=== PATIENT | male | born 1955 | race Hispanic/Latino ===

== ENCOUNTER 2016-07-30 11:16 | Emergency (ER) | payer MEDICARE, OTHER ==
[2016-07-30 11:19] VITALS: BMI 36.8
[2016-07-30 11:25] VITALS: RESP 18
--- NOTE | 2016-07-30 11:49 | ED PDOC ---
Arrival/HPI - General Chief Complaint: Back Pain Time Seen by Provider: 07/30/16 11:29 Historian: Patient - History of Present Illness Narrative History of Present Illness (Text): 07/30/16 11:45 Patient is a 61 year old male whose past medical history includes gastritis and right hemicolectomy, who presents to the emergency department with left sided back pain, intermittent body aches, and chills/sweats for the past 3 days. Patient states 2 days ago he had some "blood in his underwear" and was evaluated by his urologist. He denies associated dysuria, testicular pain or back pain at the time. Currently patient denies chest pain or shortness of breath. 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) - HEENT Hx HEENT Disorder: Yes Hx Deafness: Yes - Renal Hx Pyelonephritis: Yes - Endocrine/Metabolic Hx Endocrine Disorders: No - Hematological/Oncological Hx Blood Transfusions: No - Integumentary Hx Dermatological Disorder: No - Musculoskeletal/Rheumatological Hx Musculoskeletal Disorders: Yes - Gastrointestinal Hx Gastrointestinal Disorders: Yes Other/Comment: rectal bleed - Genitourinary/Gynecological Hx Genitourinary Disorders: (ERECTILE DYSFUNCTION,PRIAPISM) - Psychiatric Hx Emotional Abuse: No Hx Physical Abuse: No Hx Substance Use: No ("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") - Past Surgical History Past Surgical History: Non-Contributing - Surgical History Other/Comment: right colon 2011/tanesha cochlear implants - Anesthesia Hx Anesthesia Reactions: No Hx Malignant Hyperthermia: No - Suicidal Assessment Feels Threatened In Home Enviroment: No Family/Social History - Physician Review Nursing Documentation Reviewed: Yes Family/Social History: Unknown Family HX Smoking Status: vapping Hx Alcohol Use: No ("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") Hx Substance Use: No ("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") Substance used: cocaine Hx Substance Use Treatment: No Allergies/Home Meds Allergies/Adverse Reactions: Allergies warfarin Allergy (Verified 08/28/15 08:46) RASH Home Medications: Home Meds Medication Instructions Recorded Confirmed ARIPiprazole [Abilify] 15 mg PO HS 06/01/15 07/30/16 Aspirin [Warden Aspirin] 81 mg PO DAILY 06/01/15 07/30/16 Clopidogrel [Plavix] 75 mg PO DAILY 06/01/15 07/30/16 Gabapentin [Neurontin] 300 mg PO BID 06/01/15 07/30/16 Sertraline [Zoloft] 100 mg PO DAILY 06/01/15 07/30/16 Trazodone HCl [Trazodone HCl] 300 mg PO HS 06/01/15 07/30/16 traMADol [Ultram] 50 mg PO Q4H PRN 06/01/15 07/30/16 Review of Systems - Physician Review All systems were reviewed & negative as marked: Yes - Review of Systems Constitutional: Other (Chills, Sweats) Respiratory: absent: SOB Cardiovascular: absent: Chest Pain Genitourinary Male: Other (No testicular pain). absent: Dysuria Musculoskeletal: Arthralgias, Back Pain Physical Exam - Physical Exam Narrative Physical Exam (Text): Head: Atraumatic. Normocephalic. Eyes: PERRL. EOMI. Conjunctivae are not pale. ENT: Mucous membranes are moist and intact. Oropharynx is clear and symmetric. Neck: Supple. Full ROM. No JVD. No lymphadenopathy. Cardiovascular: Regular rate. Regular rhythm. No murmurs, rubs, or gallops. Distal pulses are 2+ and symmetric. Pulmonary/Chest: No evidence of respiratory distress. Clear to auscultation bilaterally. No wheezing, rales or rhonchi. Abdominal: Soft and non-distended. Diffuse but very mild lower abdominal tenderness. No rebound, guarding, or rigidity. No organomegaly. Good bowel sounds. No incarcerated hernias. Back: No CVA tenderness. No midline tenderness. Point tenderness to left lateral lower lumbar region without erythema or edema. Genitourinary: no testicular edema or erythema, no penile bleeding Extremities: No edema. No cyanosis. No clubbing. Full range of motion in all extremities. No calf tenderness. Skin: Skin is warm and dry. No petechiae. No purpura. Neurological: Alert, awake, and oriented to person, place, time, and situation. Normal speech. Motor and sensory exam intact. Psychiatric: Good eye contact. Normal interaction, affect, and behavior. 07/31/16 12:04 Vital Signs Reviewed: Yes Vital Signs Temp Pulse Resp BP Pulse Ox 07/30/16 13:35 98.7 F 75 18 126/73 97 07/30/16 11:16 99 F 80 18 120/75 95 Temperature: Afebrile Blood Pressure: Normal Pulse: Regular Respiratory Rate: Normal Appearance: Positive for: Well-Appearing, Non-Toxic, Comfortable Pain Distress: Mild Mental Status: Positive for: Alert and Oriented X 3 Medical Decision Making ED Course and Treatment: Differential Diagnosis included but are not limited to: Renal colic vs pyelonephritis vs colitis vs lumbar strain vs. uti Plan: Will obtain CT of the Abdomen/Pelvis, labs, urinalysis, and administer IV fluids. Progress Notes: Patient's prior records reviewed. Recently evaluated by urologist to 2 days ago , states he did not have pain at that time. Patient reportedly has had work up for c. diff with PMD, as he has had chronic diarrhea. He denies change in character or consistency of stools over the past several weeks, still reports "loose stools". Patient also with history of chronic abdominal pain by his history. Patient with only mild lower abdominal discomfort, no rebound or guarding. CT ordered to evaluate for renal or intestinal pathology. CT Abdomen/Pelvis Aerial Installer: Niko Ausitn MD IMPRESSION: No acute intra-abdominal findings. Patient on re-exam is comfortable, nontoxic appearing. UA reviewed, and I discussed case with Dr. Sims. Given lower abdominal discomfort, cannot exclude colitis, after communication with PMD will place on antibiotics/Flagyl. This treatment plan reviewed with patient and PMD, will place on Augmentin as there is drug interaction with quinolones on his current meds. Patient comfortable, nontoxic appearing on re-evaluation. 07/31/16 12:06 - Lab Interpretations Lab Results: 07/30/16 12:01 07/30/16 12:01 Lab Results 07/30/16 13:05: Urine Color Yellow, Urine Appearance Sl cloudy, Urine pH 6.0, Ur Specific Bruni 1.015, Urine Protein Negative, Urine Glucose (UA) Negative, Urine Ketones Negative, Urine Blood Trace-intact H, Urine Nitrate Negative, Urine Bilirubin Negative, Urine Urobilinogen 0.2, Ur Leukocyte Esterase Small H , Urine RBC 0 - 2, Urine WBC 5 - 10 07/30/16 12:01: Sodium 136, Chloride 101, Potassium 4.0, Carbon Dioxide 26, Anion Gap 13, BUN 13, Creatinine 0.9, Est GFR ( Amer) > 60, Est GFR (Non- Af Amer) > 60, Random Glucose 97, Calcium 9.5, Total Bilirubin 1.0, AST 21, ALT 34, Alkaline Phosphatase 60, Lactate Dehydrogenase 280 L, Total Creatine Kinase 80, Troponin I < 0.01 D, Total Protein 7.0, Albumin 4.0, Globulin 3.0, Albumin/ Globulin Ratio 1.3 07/30/16 12:01: pO2 116 H, VBG pH 7.43, VBG pCO2 42.0, VBG HCO3 27.9, VBG Total CO2 29.2 H, VBG O2 Sat (Calc) 99.4 H, VBG Base Excess 3.2 H, VBG Potassium 4.1, Sodium 135.0, Chloride 104.0, Glucose 98, Lactate 0.6 L, FiO2 21.0, Venous Blood Potassium 4.1 07/30/16 12:01: PT 10.7, INR 0.99, APTT 28.4 07/30/16 12:01: WBC 11.6 H D, RBC 4.16, Hgb 12.8 L, Hct 36.9 L, MCV 88.7, MCH 30.8, MCHC 34.7, RDW 13.6, Plt Count 194, MPV 9.9, Gran % 80.3 H, Lymph % (Auto ) 11.9 L, Mcculloch % (Auto) 6.9 H, Eos % (Auto) 0.8 L, Baso % (Auto) 0.1, Gran # 9.33 H, Lymph # 1.4, Mcculloch # 0.8 H, Eos # 0.1, Baso # 0.01 - RAD Interpretation Radiology Orders: 07/30/16 11:46 ABD & PELVIS W/O PO OR IV CONT [CT] Stat CHEST ONE VIEW [RAD] Stat - Medication Orders Current Medication Orders: Discontinued Medications Sodium Chloride (Sodium Chloride 0.9%) 1,000 mls @ 100 mls/hr IV .Q10H NUZHAT Last Admin: 07/30/16 11:59 Dose: 100 mls/hr - Michaelibe Statement The provider has reviewed the documentation as recorded by the Camryn Pierson Provider Michaelibjae Attestation: All medical record entries made by the Michaelibe were at my direction and personally dictated by me. I have reviewed the chart and agree that the record accurately reflects my personal performance of the history, physical exam, medical decision making, and the department course for this patient. I have also personally directed, reviewed, and agree with the discharge instructions and disposition. Disposition/Present on Arrival - Present on Arrival Any Indicators Present on Arrival: No History of DVT/PE: No History of Uncontrolled Diabetes: No Urinary Catheter: No History of Decub. Ulcer: No History Surgical Site Infection Following: None - Disposition Have Diagnosis and Disposition been Completed?: Yes Diagnosis: Flank pain, UTI (urinary tract infection), Abdominal pain Disposition: HOME/ ROUTINE Disposition Time: 13:30 Patient Plan: Discharge Condition: GOOD Discharge Instructions (ExitCare): Urinary Tract Infection in Men (ED), Flank Pain (ED) Additional Instructions: For any fevers, any abdominal pain, any urinary symptoms, any vomiting or diarrhea, any sweats, any lightheadedness or dizziness, any difficulty moving bowels, any persistent or worsening of any symptoms, get rechecked. Take antibiotics as directed. If back pain returns or worsening get rechecked immediately. Follow-up with Dr. Huerta in 2-3 days. Please contact your doctor or call one of the physicians/clinics you have been referred to that are listed on the Patient Visit Information form that is included in your discharge packet. Bring any paperwork you were given at discharge with you along with any medications you are taking to your follow up visit. Our treatment cannot replace ongoing medical care by a primary care provider (PCP) outside of the emergency department. Thank you for allowing the [facility] team to be part of your care today. If you had an X-Ray or CT scan: A Radiologist will review the ED reading if any change in treatment is needed we will contact you. If you had a blood, urine, or wound culture: It will take several days for the results, if any change in treatment is needed we will contact you. Prescriptions: Amoxicillin/Clavulanate [Augmentin 875 MG-125 MG] 1 tab PO BID #14 tab metroNIDAZOLE [Flagyl] 500 mg PO TID #21 tab Referrals: Leo Sims MD [Primary Care Provider] - Follow up with primary
[2016-07-30] MEDS ORDERED: Sodium Chloride 0.9% 1,000 ML IV SCH (12:00)
[2016-07-30 12:02] LABS: ADD MANUAL DIFF? NO
[2016-07-30 12:06] LABS: VENOUS BLOOD GAS BASE EXCESS 3.2 mmol/L (0.0-2.0); VENOUS BLOOD PH 7.43 (7.32-7.43)
[2016-07-30 12:10] LABS: BASO # 0.01 K/mm3 (0.0-2.0); BASO % 0.1 % (0.0-3.0); EOS # 0.1 (0.0-0.7); EOS % 0.8 % (1.5-5.0); GRAN # 9.33 (1.4-6.5); GRAN % 80.3 % (50.0-68.0); HEMATOCRIT 36.9 % (42.0-52.0); LYMPH # 1.4 (1.2-3.4); LYMPH % 11.9 % (22.0-35.0); MEAN CELL VOLUME 88.7 fL (80.0-105.0); MEAN CORPUSCULAR HEMOGLOBIN 30.8 pg (25.0-35.0); MEAN CORPUSCULAR HGB CONC 34.7 g/dl (31.0-37.0); MEAN PLATELET VOLUME 9.9 fl (7.0-11.0); MONO # 0.8 (0.1-0.6); MONO % 6.9 % (1.0-6.0); PLATELET COUNT 194 10^3/uL (120.0-450.0); RED CELL DISTRIBUTION WIDTH 13.6 % (11.5-14.5); WHITE BLOOD COUNT 11.6 10^3/ul (4.5-11.0)
[2016-07-30 12:14] LABS: ALB/GLOB RATIO 1.3 (1.1-1.8); ALKALINE PHOSPHATASE 60 U/L (38-133); ALT/SGPT 34 U/L (7-56); AST/SGOT 21 U/L (15-59); BLOOD UREA NITROGEN 13 mg/dL (7-21); CALCIUM 9.5 mg/dL (8.4-10.5); CARBON DIOXIDE 26 mmol/L (21-33); CHLORIDE 101 mmol/L (98-107); GFR AFRICAN-AMERICAN > 60; GLUCOSE,RANDOM 97 mg/dL (70-110); SODIUM 136 mmol/L (132-148)
[2016-07-30 12:16] LABS: INR 0.99 (0.93-1.08); PARTIAL THROMBOPLASTIN TIME 28.4 Seconds (23.7-30.8)
[2016-07-30 12:26] LABS: TROPONIN I < 0.01 ng/mL
--- NOTE | 2016-07-30 12:27 | CT ---
PROCEDURE: CT Abdomen and Pelvis without intravenous contrast HISTORY: left flank pain COMPARISON: None. TECHNIQUE: Without oral or IV contrast. Contrast Dose: Radiation dose: Total exam DLP = 1127 mGy-cm. This CT exam was performed using one or more of the following dose reduction techniques: Automated exposure control, adjustment of the mA and/or kV according to patient size, and/or use of iterative reconstruction technique. FINDINGS: LOWER THORAX: Unremarkable. LIVER: Unremarkable. No gross lesion or ductal dilatation. GALLBLADDER AND BILE DUCTS: The gallbladder is contracted and contains a small stone. PANCREAS: Unremarkable. No gross lesion or ductal dilatation. SPLEEN: Unremarkable. ADRENALS: Unremarkable. No mass. KIDNEYS AND URETERS: Unremarkable. No hydronephrosis. No solid mass. VASCULATURE: Unremarkable. No aortic aneurysm. BOWEL: Unremarkable. No obstruction. No gross mural thickening. Sutures are seen in the ascending colon. APPENDIX: Probably resected PERITONEUM: Unremarkable. No free fluid. No free air. LYMPH NODES: Unremarkable. No enlarged lymph nodes. BLADDER: Unremarkable. REPRODUCTIVE: Unremarkable. BONES: No acute fracture. OTHER FINDINGS: None. IMPRESSION: No acute intra-abdominal findings
--- NOTE | 2016-07-30 13:02 | RAD ---
PROCEDURE: CHEST RADIOGRAPH, 1 VIEW HISTORY: chills COMPARISON: 06/01/2015 FINDINGS: LUNGS: Clear. PLEURA: No pneumothorax or pleural fluid seen. CARDIOVASCULAR: Normal. OSSEOUS STRUCTURES: No significant abnormalities. VISUALIZED UPPER ABDOMEN: Normal. OTHER FINDINGS: None. IMPRESSION: No active disease.
[2016-07-30 13:12] LABS: URINE BILIRUBIN NEGATIVE (NEGATIVE); URINE BLOOD TRACE-INTACT (NEGATIVE); URINE GLUCOSE (UA) NEGATIVE (NEGATIVE); URINE KETONE NEGATIVE (NEGATIVE); URINE LEUKOCYTE ESTERASE SMALL Leu/uL (NEGATIVE); URINE PROTEIN NEGATIVE mg/dL (<30 mg/dL); URINE UROBILINOGEN 0.2 E.U./dL (<1 E.U./dL)
[2016-07-30 13:16] LABS: URINE APPEARANCE SL CLOUDY (CLEAR); URINE COLOR YELLOW (YELLOW)
[2016-07-30 13:31] LABS: URINE RBC 0 - 2 /hpf (0-2)
[2016-07-30 14:09] VITALS: BP 126/73; PULSE 75; TEMP 98.7; O2SAT 97
--- NOTE | 2016-07-31 16:08 | CARD ---
APPROVED REPORT EKG Measurement Heart [id number] IN [id number] [id number] <Conclusion> Normal sinus rhythm Normal ECG
== END 2016-07-30 14:10 | disposition home or self-care (01) ==
LOC: ED 11:16
DX: N39.0 Urinary tract infection, site not specified (principal); R10.9 Unspecified abdominal pain
CPT/HCPCS: 71010; 74176; 80053; 81001; 82550; 82803; 83615; 84484; 85025; 85610; 85730; 87086; 93005; 99283; J7040

== ENCOUNTER 2016-08-16 07:44 | Day surgery (SDC) | payer MEDICARE, OTHER ==
[2016-08-16 08:09] VITALS: RESP 18; O2SAT 96
[2016-08-16] MEDS ORDERED: Bupivacaine 0.5% Inj(30mL) ONE (09:24)
[2016-08-16] MEDS ORDERED: Lidocaine 1% Inj (20ml) ONE (09:24)
[2016-08-16 10:21] VITALS: BP 127/72; PULSE 75; TEMP 97.6
--- NOTE | 2016-08-16 10:21 | PCM.SURG1 ---
Surgeon's Initial Post Op Note - Surgeon's Notes Surgeon: Dr. Calderon Solar Power Installer: Dr. Britt PGY2, Dr. Carreno PGY3 Type of Anesthesia: Local Pre-Operative Diagnosis: Sebaceous cyst of abdominal wall Operative Findings: same Post-Operative Diagnosis: same Operation Performed: Excision of Sebaceous Cyst, abdominal wall Specimen/Specimens Removed: sebaceous cyst Estimated Blood Loss: EBL {In ML}: 5 Blood Products Given: N/A Drains Used: No Drains Post-Op Condition: Good Date of Surgery/Procedure: 08/16/16 Time of Surgery/Procedure: 10:20
== END 2016-08-16 10:45 | disposition home or self-care (01) ==
LOC: OPSURG 07:44
PROVIDERS: ATTEND Surgery
DX: D23.5 Other benign neoplasm of skin of trunk (principal); L72.3 Sebaceous cyst

== ENCOUNTER 2016-09-06 06:07 | Day surgery (SDC) | payer MEDICARE, OTHER ==
[2016-09-06 07:01] VITALS: BMI 36.8
[2016-09-06 07:39] LABS: INR 1.04 (0.93-1.08); PROTHROMBIN TIME 11.2 Seconds (9.9-11.8)
[2016-09-06 07:41] LABS: BASO # 0.01 K/mm3 (0.0-2.0); BASO % 0.1 % (0.0-3.0); EOS # 0.2 (0.0-0.7); GRAN # 5.31 (1.4-6.5); GRAN % 70.4 % (50.0-68.0); HEMOGLOBIN 13.9 gm/dL (14.0-18.0); LYMPH # 1.5 (1.2-3.4); LYMPH % 20.2 % (22.0-35.0); MEAN CORPUSCULAR HEMOGLOBIN 30.5 pg (25.0-35.0); MEAN CORPUSCULAR HGB CONC 35.1 g/dl (31.0-37.0); MEAN PLATELET VOLUME 9.3 fl (7.0-11.0); MONO # 0.6 (0.1-0.6); MONO % 7.3 % (1.0-6.0); PLATELET COUNT 186 10^3/uL (120.0-450.0); RBC 4.55 10^6/uL (3.5-6.1); RED CELL DISTRIBUTION WIDTH 13.3 % (11.5-14.5); WHITE BLOOD COUNT 7.5 10^3/ul (4.5-11.0)
[2016-09-06] MEDS ORDERED: Propofol 10 mg/ml Inj (20 ML) ONE ×2 (08:04→08:31)
[2016-09-06] MEDS ORDERED: Lidocaine 1% Inj (20ml) ONE (08:04)
[2016-09-06] MEDS ORDERED: ePHEDrine 50 mg/ml Inj ONE (08:41)
[2016-09-06] MEDS ORDERED: Sodium Chloride 0.9% 1,000 ML IV SCH (09:15)
[2016-09-06 10:32] VITALS: BP 124/66; PULSE 57; RESP 16; TEMP 97.6; O2SAT 94
== END 2016-09-06 10:48 | disposition home or self-care (01) ==
LOC: ENDO 06:07
PROVIDERS: ATTEND Internal Medicine Gastroenterology
DX: D12.2 Benign neoplasm of ascending colon (principal); K57.30 Diverticulosis of large intestine without perforation or abscess without bleeding; D12.5 Benign neoplasm of sigmoid colon; K64.8 Other hemorrhoids; I10 Essential (primary) hypertension; K62.5 Hemorrhage of anus and rectum; Z86.73 Personal history of transient ischemic attack (TIA), and cerebral infarction without residual deficits; F41.9 Anxiety disorder, unspecified; E78.5 Hyperlipidemia, unspecified
CPT/HCPCS: 36415; 45380; 45384; 45385; 85025; 85610; 88305; J2704; J7040

== ENCOUNTER 2016-09-27 06:27 | Day surgery (SDC) | payer MEDICARE, OTHER ==
[2016-09-20 09:58] VITALS: BMI 39.9
[2016-09-27] MEDS ORDERED: Propofol 10 mg/ml Inj (20 ML) ONE (08:11)
[2016-09-27] MEDS ORDERED: Lidocaine 1% Inj (20ml) ONE (08:11)
[2016-09-27] MEDS ORDERED: Sodium Chloride 0.9% 1,000 ML IV SCH (08:45)
[2016-09-27 09:06] VITALS: O2SAT 96
[2016-09-27 09:40] VITALS: BP 141/72; PULSE 67; RESP 19; TEMP 97.6
== END 2016-09-27 10:12 | disposition home or self-care (01) ==
LOC: ENDO 06:27
PROVIDERS: ATTEND Internal Medicine Gastroenterology
DX: K21.0 Gastro-esophageal reflux disease with esophagitis (principal); K25.9 Gastric ulcer, unspecified as acute or chronic, without hemorrhage or perforation; K29.50 Unspecified chronic gastritis without bleeding; K29.80 Duodenitis without bleeding; K44.9 Diaphragmatic hernia without obstruction or gangrene; I10 Essential (primary) hypertension; E78.5 Hyperlipidemia, unspecified
CPT/HCPCS: 43239; 88305; 88342; J2704; J7040

== ENCOUNTER 2016-11-21 13:00 | Emergency (ER) | payer MEDICARE, OTHER ==
[2016-11-21 13:01] VITALS: BMI 39.9
--- NOTE | 2016-11-21 13:24 | ED PDOC ---
Arrival/HPI - General Chief Complaint: Back Pain Time Seen by Provider: 11/21/16 13:03 Historian: Patient - History of Present Illness Time/Duration: Other (2 weeks) Symptom Onset: Gradual Symptom Course: Worsening Quality: Aching, Pressure Severity Level: Moderate Activities at Onset: Rest Associated Symptoms (Text): 11/21/16 13:21 Patient complains of a 2 week history of lower back pain, especially on the right, with radiation into his right posterior lower extremity. No injury or trauma. No abdominal pain nausea vomiting or diarrhea. No genitourinary symptoms. No weakness. No numbness tingling or paresthesias. No history of low back pain. Past Medical History - Past History Past History: No Previous - Infectious Disease Hx of Infectious Diseases: None - Tetanus Immunization Tetanus Immunization: Unknown - Past Medical History Past Medical History: No Previous - Cardiac Hx Pacemaker: No - Pulmonary Hx Respiratory Disorders: No - Neurological Hx Paralysis: No - HEENT Hx HEENT Disorder: Yes Hx Deafness: Yes - Renal Hx Pyelonephritis: Yes - Endocrine/Metabolic Hx Endocrine Disorders: No - Hematological/Oncological Hx Blood Transfusions: No Hx Blood Transfusion Reaction: No - Integumentary Hx Dermatological Disorder: No - Musculoskeletal/Rheumatological Hx Musculoskeletal Disorders: Yes - Gastrointestinal Hx Gastrointestinal Disorders: Yes Other/Comment: rectal bleed - Genitourinary/Gynecological Hx Genitourinary Disorders: (ERECTILE DYSFUNCTION,PRIAPISM) - Psychiatric Hx Emotional Abuse: No Hx Physical Abuse: No Hx Substance Use: No ("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") - Past Surgical History Past Surgical History: Non-Contributing - Surgical History Other/Comment: right colon 2011/tanesha cochlear implants - Anesthesia Hx Anesthesia: Yes Hx Anesthesia Reactions: No Hx Malignant Hyperthermia: No - Suicidal Assessment Feels Threatened In Home Enviroment: No Family/Social History - Physician Review Nursing Documentation Reviewed: Yes Family/Social History: Unknown Family HX Smoking Status: Former Smoker Hx Alcohol Use: No ("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") Hx Substance Use: No ("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") Substance used: cocaine Hx Substance Use Treatment: No Allergies/Home Meds Allergies/Adverse Reactions: Allergies warfarin Allergy (Verified 09/20/16 09:58) RASH esomeprazole [From Nexium] Adverse Reaction (Verified 11/21/16 13:11) PAIN Home Medications: Home Meds Medication Instructions Recorded Confirmed ARIPiprazole [Abilify] 15 mg PO HS 06/01/15 11/21/16 Aspirin [Grant Aspirin] 81 mg PO DAILY 06/01/15 11/21/16 Clopidogrel [Plavix] 75 mg PO DAILY 06/01/15 11/21/16 Gabapentin [Neurontin] 300 mg PO BID 06/01/15 11/21/16 Sertraline [Zoloft] 100 mg PO DAILY 06/01/15 11/21/16 Trazodone HCl 300 mg PO HS 06/01/15 11/21/16 traMADol [Ultram] 50 mg PO Q4H PRN 06/01/15 11/21/16 Ergocalciferol (Vitamin D2) 2,000 iu PO QPM 08/31/16 11/21/16 [Vitamin D2] Pravastatin Sodium [Pravachol] 20 mg PO QPM 08/31/16 11/21/16 Dexlansoprazole [Dexilant] 60 mg PO DAILY 09/27/16 11/21/16 Review of Systems - Physician Review All systems were reviewed & negative as marked: Yes - Review of Systems Respiratory: Normal Cardiovascular: Normal Gastrointestinal: Normal Genitourinary Male: Normal Musculoskeletal: Back Pain. absent: Neck Pain Neurological: Normal Physical Exam Vital Signs Temp Pulse Resp BP Pulse Ox 11/21/16 13:02 98.1 F 72 20 132/61 99 Temperature: Afebrile Blood Pressure: Normal Pulse: Regular Respiratory Rate: Normal Appearance: Positive for: Well-Appearing, Non-Toxic, Uncomfortable Pain Distress: Mild Mental Status: Positive for: Alert and Oriented X 3 - Systems Exam Head: Present: Atraumatic, Normocephalic Neck: Present: Normal Range of Motion. No: MIDLINE TENDERNESS, Paraspinal Tenderness Respiratory/Chest: Present: Clear to Auscultation, Good Air Exchange. No: Respiratory Distress, Accessory Muscle Use Cardiovascular: Present: Regular Rate and Rhythm, Normal S1, S2. No: Murmurs Abdomen: Present: Normal Bowel Sounds. No: Tenderness, Distention, Peritoneal Signs, Rebound, Guarding Back: Present: Normal Inspection, Paraspinal Tenderness (Mild right lumbar paraspinous tenderness with no spasm. Negative straight leg raising. No sciatic notch tenderness. No scoliosis. No swelling. No skin changes.). No: CVA Tenderness, Midline Tenderness Lower Extremity: Present: Normal Inspection, NORMAL PULSES, Normal ROM, Neurovascularly Intact. No: Edema, Cyanosis, Isaac's Sign, Tenderness, Swelling , Erythema, Deformity Neurological: Present: GCS=15, CN II-XII Intact, Speech Normal, Motor Func Grossly Intact, Gait Normal Medical Decision Making ED Course and Treatment: 11/21/16 14:15 Patient just returned from x-ray. He has not yet received his Toradol and Flexeril. His x-rays are unrevealing. He will be discharged as soon as he receives his medication with prescriptions to follow-up with his PMD. Follow-up and the ER as needed. - RAD Interpretation Radiology Orders: 11/21/16 13:20 LS SPINE WITH OBL > 18 YRS OLD [RAD] Stat Lumbosacral spine shows DJD with no fracture or dislocation Teleprinter: ED Physician - Medication Orders Current Medication Orders: Cyclobenzaprine HCl (Flexeril) 10 mg PO ONCE NUZHAT Last Admin: 11/21/16 14:14 Dose: 10 mg Discontinued Medications Ketorolac Tromethamine (Toradol) 60 mg IM ONCE ONE Stop: 11/21/16 13:21 Last Admin: 11/21/16 14:15 Dose: 60 mg MAR Pain Assessment Document 11/21/16 14:15 IT (Rec: 11/21/16 14:15 [facility] [id number] Pain Reassessment Is this a pain reassessment? No Sleep Is patient sleeping during reassessment? No Presence of Pain Presence of Pain Yes Pain Scale Used Pain Scale Used Numeric Location Left, Right or Bilateral Bilateral Upper or Lower Lower Pain Location Body Site Generalized IM Administration Charges Document 11/21/16 14:15 IT (Rec: 11/21/16 14:15 [facility] [id number] Charges for Administration # of IM Administrations 1 Disposition/Present on Arrival - Present on Arrival Any Indicators Present on Arrival: No History of DVT/PE: No History of Uncontrolled Diabetes: No Urinary Catheter: No History of Decub. Ulcer: No History Surgical Site Infection Following: None - Disposition Have Diagnosis and Disposition been Completed?: Yes Diagnosis: Low back pain Disposition: HOME/ ROUTINE Disposition Time: :17 Patient Plan: Discharge Condition: GOOD Discharge Instructions (ExitCare): Acute Low Back Pain (ED) Prescriptions: Cyclobenzaprine [Cyclobenzaprine HCl] 5 mg PO Q8 #15 tab Cyclobenzaprine [Cyclobenzaprine HCl] 5 mg PO Q8 #15 tab Forms: [employer] (Uzbek)
[2016-11-21 14:38] VITALS: BP 130/82; PULSE 82; RESP 17; TEMP 98.2; O2SAT 98
--- NOTE | 2016-11-21 14:41 | RAD ---
PROCEDURE: Radiographs of the Lumbar Spine. HISTORY: Back Pain. No history of recent/ related trauma provided COMPARISON: No prior. FINDINGS: BONES: Normal alignment. No listhesis. No fracture. DISC SPACES: Multilevel degenerative changes, mild. Preservation of intervertebral disc spaces. OTHER FINDINGS: None. IMPRESSION: No significant or acute findings to account for/ related to the clinical presentation. Additional benign and/or incidental findings described above. Concordant results with the preliminary interpretation rendered by the emergency department physician procedure.
== END 2016-11-21 14:38 | disposition home or self-care (01) ==
LOC: ED 13:00
DX: M54.5 Low back pain (principal)
CPT/HCPCS: 72110; 96372; 99282; J1885

== ENCOUNTER 2017-01-19 06:03 | Day surgery (SDC) | payer MEDICARE ==
[2017-01-19 06:42] VITALS: BMI 39.9
[2017-01-19] MEDS ORDERED: Lidocaine 2% Inj (20ml) ONE (08:26)
[2017-01-19] MEDS ORDERED: Etomidate 20 mg/10ml Inj IV ONE (08:26)
[2017-01-19] MEDS ORDERED: Midazolam 2 MG/2 ML VIAL ONE (08:26)
[2017-01-19] MEDS ORDERED: cefTRIAXone (Rocephin) 1 gm Inj ONE (08:30)
[2017-01-19] MEDS ORDERED: Sodium Chloride 0.9% 1,000 ML IV SCH (09:15)
[2017-01-19 09:23] VITALS: RESP 18
[2017-01-19 10:34] VITALS: TEMP 97.4
[2017-01-19 11:22] VITALS: BP 139/72; PULSE 80; O2SAT 96
== END 2017-01-19 11:17 | disposition home or self-care (01) ==
LOC: SDS 06:03
PROVIDERS: ATTEND Urology
DX: N35.9 Urethral stricture, unspecified (principal)
CPT/HCPCS: 52281; A4358; J0696; J1885; J2250; J3010; J7040; J7120

== ENCOUNTER 2017-04-27 06:08 | Day surgery (SDC) | payer MEDICARE ==
[2017-04-18 14:34] VITALS: BMI 36.9
[2017-04-27] MEDS ORDERED: Bupivacaine 0.5% Inj(30mL) ONE (07:13)
--- NOTE | 2017-04-27 07:26 | CP.SDSHP ---
Same Day Surgery H & P - History Proposed Procedure: percutaneous tenotomy of the right achilles under ultrasound guidance Pre-Op Diagnosis: right painful achilles tendinopathy and right retrocalcaneo buritis - Allergies Allergies: Allergies warfarin Allergy (Verified 09/20/16 09:58) RASH esomeprazole [From Nexium] Adverse Reaction (Verified 11/21/16 13:11) PAIN - Physical Exam Mental Status: Alert & Oriented x3 - {Optional Preform as Required} Integument: WNL Other Pertinent Findings: Pain with palpation of the right achilles tendon at the insertion,. Severe pain at the posterior calcaneal of right heel. Pain with right ankle ROM at the posterior achilles tendon - Impression Impression: Pt was seen and examined in SDS. Pt NPO status was confirmed. All Pre-op testing and clearance was in the chart. Pt has exhausted all conservative treatment at this time and is opting for surgical intervention. Pt was explained procedure and post-operative course. All pt's questions were answered to satisfaction. No guarantees were made. Pt understands all risks, benefits and complications of procedure. Pt will follow-up with Dr. Phelps - Date & Time Date: 04/27/17 Time: 07:30 Short Stay Discharge - Short Stay Discharge Admitting Diagnosis/Reason for Visit: M76.61/M24.571/M71.371 Disposition: HOME/ ROUTINE Referrals: Leo Sims MD [Primary Care Provider] - Follow-up: Patient to follow up with Dr. Phelps in 1 week in the office Additional Instructions (Diet, Activity): --Patient in good/stable condition for discharge home. Pt to resume medications per medical reconciliation. Resume regular diet. Please keep dressing clean, dry, & intact to surgical site, use plastic bag over bandage for showering, wear CAM boot at all times when ambulating, call clinic if you see signs of infection (redness, swelling, malodor), please make an appointment to see Dr. Phelps in office/clinic within 1 week for post-op check. Progress Note/Discharge Note with Instructions: - Patient evaluated bedside in recovery s/p surgical procedure. - After surgical procedure patient in NAD - Capillary refill time <3s and NVSI intact. - Patient denies complaints at this time - Post operative instructions and plan of care explained to patient at length. - Pt. acknowledges understanding. - Patient stable for DC per podiatric surgery
[2017-04-27] MEDS ORDERED: Lidocaine 1% Inj (20ml) ONE (07:40)
[2017-04-27] MEDS ORDERED: Propofol 10 mg/ml Inj (20 ML) ONE (07:47)
[2017-04-27] MEDS ORDERED: Midazolam 2 MG/2 ML VIAL ONE (07:52)
[2017-04-27] MEDS ORDERED: Sodium Chloride 0.9% 10 ML IV ONE (07:54)
[2017-04-27] MEDS ORDERED: Lactated Ringer's 1,000 ML IV SCH (08:15)
--- NOTE | 2017-04-27 08:51 | PCM.SURG1 ---
Surgeon's Initial Post Op Note - Surgeon's Notes Surgeon: Dr. Phelps DPM Fraud Investigator: Dr. Woodard DPM Type of Anesthesia: IV Sedation, Local Anesthesia Administered By: Dr. Esparza Pre-Operative Diagnosis: right painful posterior heel, chronic achilles tendonpathy, and retrocalcaneal bursitis Operative Findings: see dications; materials nylon 3-0, preoperative injectables : 11 cc of 1:1 of 1% lidocaine plain and .5% marcaine plain; intraoperative injectables: 9 cc of .5 % marcaine plain; aminox injection Post-Operative Diagnosis: same Operation Performed: percutaneous tenotomy of the right achilles under ultrasound guidance Specimen/Specimens Removed: none Estimated Blood Loss: EBL {In ML}: 2 Blood Products Given: N/A Drains Used: No Drains Post-Op Condition: Good Date of Surgery/Procedure: 04/27/17 Time of Surgery/Procedure: 07:30
[2017-04-27] MEDS ORDERED: Oxycodone/Acetaminophen 5/325 mg Tab PO PRN ×2 (09:01)
[2017-04-27 10:19] VITALS: TEMP 97.2
[2017-04-27 11:21] VITALS: BP 142/81; PULSE 71; RESP 20; O2SAT 96
--- NOTE | 2017-04-28 08:05 | OP ---
PROCEDURE DATE: 04/27/2017 PREOPERATIVE DIAGNOSES: Right painful posterior heel, chronic Achilles tendinopathy and retrocalcaneal bursitis. POSTOPERATIVE DIAGNOSES: Right painful posterior heel, chronic Achilles tendinopathy and retrocalcaneal bursitis. PROCEDURE: Percutaneous tenotomy of the right Achilles tendon under ultrasound guidance and amnio cells injection. SURGEON: Mary Phelps DPM TECHNICAL OPERATIONS VICE PRESIDENT: Emmanuel Woodard DPM, PGY-1 TYPE OF ANESTHESIA: IV sedation with local. ANESTHESIA ADMINISTERED BY: Dr. Brito INDICATIONS: The patient is a 61-year-old male with the above diagnosis. The patient has exhausted all conservative treatment at this time and now requires surgical intervention. The patient signed the consent after careful explanation of risks, benefits, complications, and alternatives for surgical procedure. No guarantees were given nor implied. PREPARATION: The patient was brought into the operating room and placed on the operating room table in a prone position. A timeout was performed for identification of the correct patient and procedure. After induction of IV sedation, the patient received a total of 11 mL of 1:1 of lidocaine plain and 0.5 Marcaine plain in a local block fashion to the posterior right ankle. DESCRIPTION OF PROCEDURE: Once anesthesia was achieved, the right foot and ankle was then prepped and draped in a normal sterile manner. No tourniquet was used during the entire procedure. Attention was then directed to the posterior right ankle. A sterile sleeve was placed over the ultrasound transducer, and a diagnostic ultrasound was performed. The anomaly was identified in that the diseased thickened area of Achilles was observed. Using a #11 blade, a stab incision was made to the lateral aspect of the posterior right ankle. The CX two-hand piece was inserted into the mid substance of Achilles tendon. The hypoechoic regions of the Achilles tendon were visualized with the ultrasound. The foot pedal was depressed, and the area was debrided and tissue excised. Approximately a total of 5 minutes of ultrasonic energy was delivered. Then using a #11 blade, a second stab incision was made on the medial aspect of the posterior right ankle. The CX two-hand piece was inserted in the mid substance of the Achilles tendon. The hypoechoic regions of the Achilles tendon were visualized with ultrasound. The foot pedal was depressed, and the area was debrided and tissue excised. Approximately a total of 5 minutes of ultrasonic energy was delivered. Next, the surgical site was cleansed using a saline solution and flushed, then using a 3-0 nylon, the skin and skin edges were reapproximately in a simple suture pattern to both surgical incision sites. Next, a total of 9 mL of 0.5 Marcaine plain was given in a local block fashion to the right ankle. Next amnio cells, about 1 ml, was injected surrounding the achilles tendon at the level of insertion and surrounding achilles tendon Next, the incision sites were then dressed with Adaptic, gauze, Дмитрий, and kerlix POSTOPERATIVE CONDITION: The patient tolerated anesthesia and procedure well and was escorted to the recovery room with the vital signs stable and neurovascular status intact to the right foot. Patient to remain weightbearing as tolerated in a CAM boot. This patient will be seen and followed by Dr. Phelps as an outpatient in her office this Tuesday. Emmanuel Woodard DPM Mary Phelps DPM ROBBY
== END 2017-04-27 12:50 | disposition home or self-care (01) ==
LOC: SDS 06:08
PROVIDERS: ATTEND Podiatrist Foot & Ankle Surgery
DX: M76.61 Achilles tendinitis, right leg (principal); M70.871 Other soft tissue disorders related to use, overuse and pressure, right ankle and foot
CPT/HCPCS: 11043; 20551; 27605; 76942; C9399; J2250; J2704; J3010; J7120 ×2

== ENCOUNTER 2017-08-09 10:42 | Emergency (ER) | payer MEDICARE ==
[2017-08-09 10:42] VITALS: BMI 36.8
--- NOTE | 2017-08-09 12:12 | ED PDOC ---
Arrival/HPI - General Chief Complaint: Lower Extremity Problem/Injury Time Seen by Provider: 08/09/17 11:05 Historian: Patient - History of Present Illness Narrative History of Present Illness (Text): 08/09/17 11:58 This is a 62 yo M with PMH including TIA, CVA, bilateral carotid disease s/p stenting, urethral structures, and cochlear implants who presents with complaint of left knee pain x2 weeks, acutely worsened today. Reports getting bilateral knee hydrocortisone shots approx 3 weeks prior by PMD (Dr. Sims) for chronic knee pain, and then approx 2 weeks ago, was turning left when heard a popping sound from left knee and developed new left knee pain. Pain was stable and did not impede him from performing activities of daily living until abruptly worsening today, so he called PMD's office and was instructed to present to ED. Is unaware of any inciting incident that caused pain to worsen today, and denies falls or trauma to knee. Reports sensation of swelling in knee, pain primarily along medial and posterior aspect of L knee, but denies any loss of sensation or motor control. Does feel like knee is buckling today, but has not actually had leg give out from under him, just feels at greater risk of it today. At rest in bed during interview, reports pain is 6/10, but appears comfortable. Denies redness or sense of heat from knee; denies fevers, chills, shortness of breath, chest pain, nausea, emesis, dysuria, hematuria, or diarrhea. Does report hx of "knee tear" discovered on MRI prior to cochlear implant, but unsure what knee or what was torn, and reports Ortho he followed up with at the time All other ROS in 12-system review negative. 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 Sims Time/Duration: > week Symptom Onset: Sudden (sudden worsening of knee pain) Symptom Course: Other (unchanged from onset to today, then abruptly worsened) Quality: Throbbing Severity Level: 6 (at rest) Context: Standing (occurred while turning) Past Medical History - Provider Review Nursing Documentation Reviewed: Yes - Past History Past History: No Previous - Infectious Disease Hx of Infectious Diseases: None - Tetanus Immunization Tetanus Immunization: Unknown - Past Medical History Past Medical History: No Previous - Cardiac Hx Pacemaker: No - Pulmonary Hx Respiratory Disorders: No - Neurological Hx Paralysis: No - HEENT Hx HEENT Disorder: Yes Hx Deafness: Yes (hearing aid) - Renal Hx Pyelonephritis: Yes - Endocrine/Metabolic Hx Endocrine Disorders: No - Hematological/Oncological Hx Blood Transfusions: No - Integumentary Hx Dermatological Disorder: No - Musculoskeletal/Rheumatological Hx Musculoskeletal Disorders: Yes - Gastrointestinal Hx Gastrointestinal Disorders: Yes Other/Comment: rectal bleed - Genitourinary/Gynecological Hx Genitourinary Disorders: (ERECTILE DYSFUNCTION,PRIAPISM) - Psychiatric Hx Emotional Abuse: No Hx Physical Abuse: No Hx Substance Use: No ("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") - Past Surgical History Past Surgical History: Non-Contributing - Surgical History Other/Comment: right colon 2011/tanesha cochlear implants - Anesthesia Hx Anesthesia Reactions: No Hx Malignant Hyperthermia: No - Suicidal Assessment Feels Threatened In Home Enviroment: No Family/Social History - Physician Review Nursing Documentation Reviewed: Yes Family/Social History: No Known Family HX Smoking Status: Former Smoker Hx Alcohol Use: No ("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") Hx Substance Use: No ("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") Substance used: cocaine Hx Substance Use Treatment: No Allergies/Home Meds Allergies/Adverse Reactions: Allergies warfarin Allergy (Verified 09/20/16 09:58) RASH esomeprazole [From Nexium] Adverse Reaction (Verified 11/21/16 13:11) PAIN Home Medications: Home Meds Medication Instructions Recorded Confirmed ARIPiprazole [Abilify] 15 mg PO HS 06/01/15 04/27/17 Aspirin [[place] Aspirin] 81 mg PO DAILY 06/01/15 04/27/17 Clopidogrel [Plavix] 75 mg PO DAILY 06/01/15 04/18/17 Gabapentin [Neurontin] 300 mg PO BID 06/01/15 04/27/17 Sertraline [Zoloft] 100 mg PO DAILY 06/01/15 04/27/17 Trazodone HCl 300 mg PO HS 06/01/15 04/27/17 traMADol [Ultram] 50 mg PO TID 06/01/15 04/27/17 Pravastatin Sodium [Pravachol] 20 mg PO QPM 08/31/16 04/27/17 Pantoprazole [Protonix EC Tab] 40 mg PO DAILY 04/18/17 04/27/17 Review of Systems - Physician Review All systems were reviewed & negative as marked: Yes (as per HPI) - Review of Systems Constitutional: Normal. absent: Fatigue, Fevers, Night Sweats Eyes: Normal. absent: Vision Changes ENT: Normal. absent: Sore Throat, Rhinorrhea, Epistaxis, Sinus Congestion Respiratory: Normal. absent: SOB, Cough Cardiovascular: Normal. absent: Chest Pain, WHITNEY, Syncope Gastrointestinal: Normal. absent: Abdominal Pain, Constipation, Diarrhea, Nausea, Vomiting, Appetite Changes, Food Intolerance Genitourinary Male: Normal. absent: Dysuria, Frequency, Hematuria Musculoskeletal: Joint Swelling (left knee swelling), Other (worsening left knee pain, left knee pop on onset). absent: Normal Skin: Normal. absent: Rash, Pruritis, Cellulitis Neurological: absent: Headache, Dizziness, Focal Weakness, Gait Changes Endocrine: Normal. absent: Diaphoresis Physical Exam Vital Signs Temp Pulse Resp BP Pulse Ox 08/09/17 14:36 98.0 F 72 18 120/59 L 98 08/09/17 10:42 98 F 78 18 123/66 97 Temperature: Afebrile Blood Pressure: Normal Pulse: Regular Respiratory Rate: Normal Appearance: Positive for: Well-Appearing, Non-Toxic, Other (mildly uncomfortable with utilization of knee, otherwise comfortable) Pain Distress: Other (no overt pain at rest but pain reports 6/10 pain at rest, appears in mild discomfort with utilization and testing of left knee) Mental Status: Positive for: Alert and Oriented X 3. No: Confused, Agitated, Lethargic - Systems Exam Head: Present: Atraumatic, Normocephalic. No: Tenderness, Contusion, Ecchymosis , Abrasion, Laceration Pupils: No: Pinpoint Extroacular Muscles: Present: EOMI Conjunctiva: Present: Normal. No: Injected, Icteric Mouth: Present: Moist Mucous Membranes, Normal Lips, Normal Tounge, Normal Teeth. No: Dry, Drooling Nose (External): Present: Atraumatic. No: Abrasion, Laceration Nose (Internal): Present: No Active Bleeding. No: Epistaxis Neck: Present: Normal Range of Motion, Trachea Midline. No: MIDLINE TENDERNESS , JVD Respiratory/Chest: Present: Clear to Auscultation, Good Air Exchange. No: Respiratory Distress, Accessory Muscle Use, Wheezes, Decreased Breath Sounds, Rales, Rhonchi, Tachypneic Cardiovascular: Present: Regular Rate and Rhythm, Normal S1, S2, Peripheal Pulses Present (+2 radials and dorsalis pedis bilaterally). No: Murmurs, Irregular Rhythm, Tachycardic, Bradycardic Abdomen: Present: Normal Bowel Sounds. No: Tenderness, Distention (obese but not distended), Guarding, Mass/Organomegaly Upper Extremity: Present: Normal Inspection, Normal ROM, NORMAL PULSES. No: Cyanosis, Edema, Tenderness, Swelling, Erythema, Deformity Lower Extremity: Present: NORMAL PULSES, Normal ROM (some restriction of active ROM 2/2 pain, passive ROM remains intact fully), Tenderness (mild tenderness at medial aspect of pattella, chronic pain along posterior aspect of knee not worsened by palpation, worsened but still mild tenderness with valgus stress testing, no patellar tendon tenderness), Other (no appreciable laxity with valgus or varus testing, negative anterior and posterior drawer tests, negative Lachmann's, no hip tenderness). No: Edema, CALF TENDERNESS, Cyanosis, Swelling , Erythema, Deformity, Temperature Abnormalties Neurological: Present: GCS=15, Speech Normal, Motor Func Grossly Intact, Normal Sensory Function Skin: Present: Warm, Dry, Normal Color. No: Rashes, Diaphoretic, Erythematous, Induration, Hot, Laceration, Abscess Lymphatic: No: Cervical Adenopathy Psychiatric: Present: Alert, Oriented x 3, Normal Insight, Normal Concentration , Normal Affect, Normal Mood Medical Decision Making ED Course and Treatment: 08/09/17 12:27 Ddx: patellar dislocation vs MCL injury vs ACL vs chondromalacia Less likely MCL vs ACL full tear since ambulating without complaint for 2 weeks post-inciting insult Given lack of systemic symptoms, no appreciable swelling or effusion on exam, no erythema, less likely septic joint, less likely cellulitis B/l knee x-ray to assess, r/o fracture 08/09/17 14:42 X-ray negative for fracture, notable for bilateral tricompartmental OA L knee immobilizer and Cane given, instructed in use Case discussed with PMD, who requests patient be given referral to Orthopedist, Referral to Dr. Briceño placed in discharge papers. Discharged to home Seen, reviewed, and discussed with attending, Dr. Adkins - RAD Interpretation Radiology Orders: 08/09/17 11:56 KNEE W PATELLA BILAT 3 VIEW [RAD] Stat - Medication Orders Current Medication Orders: Discontinued Medications Acetaminophen (Tylenol 325mg Tab) 975 mg PO STAT STA Stop: 08/09/17 11:57 Last Admin: 08/09/17 12:10 Dose: 975 mg MAR Pain/Vitals Document 08/09/17 12:10 OCS (Rec: 08/09/17 12:11 OCS [facility] [place]) Pain Reassessment Is This A Pain ReAssessment? No Sleep Is patient sleeping during reassessment? No Presence of Pain Presence of Pain Yes Pain Scale Used Pain Scale Used Numeric Location Left, Right or Bilateral Left Pain Location Body Site Knee Description Constant Intensity 6 Scale Used Numeric Aggravating Factors ADL's Disposition/Present on Arrival - Present on Arrival Any Indicators Present on Arrival: No History of DVT/PE: No History of Uncontrolled Diabetes: No Urinary Catheter: No History Surgical Site Infection Following: None - Disposition Have Diagnosis and Disposition been Completed?: Yes Diagnosis: Left medial knee pain Disposition: HOME/ ROUTINE Disposition Time: 14:44 Patient Plan: Discharge Condition: FAIR Discharge Instructions (ExitCare): Patellofemoral Pain (DC), Knee Pain (DC) Additional Instructions: Please use your knee immobilizer and cane for gait stability until otherwise instructed by either Ortho or your PMD. GÓMEZ HESS, thank you for letting us take care of you today. Your provider was Miguel Angel Adkins MD and you were treated for (L)KNEE PAIN. The emergency medical care you received today was directed at your acute symptoms. If you were prescribed any medication, please fill it and take as directed. It may take several days for your symptoms to resolve. Return to the Emergency Department if your symptoms worsen, do not improve, or if you have any other problems. Please follow up with your PMD within 1-2 weeks of discharge. Additionally, at the instruction of your PMD, you have been given a referral for an Orthopedist, please call and make an appointment for follow-up. Bring any paperwork you were given at discharge with you along with any medications you are taking to your follow up visit. Our treatment cannot replace ongoing medical care by a primary care provider outside of the emergency department. Thank you for allowing the [facility] team to be part of your care today. If you had an X-Ray or CT scan: A Radiologist will review the ED reading if any change in treatment is needed we will contact you. If you had a blood, urine, or wound culture: It will take several days for the results, if any change in treatment is needed we will contact you. If you had an STI test: It will take 48 hours for the results. Please call after 1 week if you have not heard back. Referrals: Avelino Briceño MD [Staff Provider] - Follow up with primary Leo Sims MD [Family Provider] - Follow up with primary Forms: [employer] (Persian)
[2017-08-09 12:33] VITALS: RESP 18
--- NOTE | 2017-08-09 12:58 | RAD ---
PROCEDURE: Left Knee Radiographs. HISTORY: Pain. COMPARISON: None. FINDINGS: BONES: Normal. No fracture. JOINTS: Bilateral tricompartmental osteoarthritis. No articular erosion. JOINT EFFUSION: Small left joint effusion. No right joint effusion. OTHER FINDINGS: None. IMPRESSION: Bilateral tricompartmental osteoarthritis with small left joint effusion.
[2017-08-09 14:37] VITALS: BP 120/59; PULSE 72; TEMP 98; O2SAT 98
== END 2017-08-09 14:27 | disposition home or self-care (01) ==
LOC: ED 10:42
DX: M25.562 Pain in left knee (principal); Z87.891 Personal history of nicotine dependence

== ENCOUNTER 2017-12-01 12:47 | Emergency (ER) | payer MEDICARE ==
[2017-12-01 12:47] VITALS: BMI 36.8
[2017-12-01 12:55] VITALS: TEMP 97.8
[2017-12-01] MEDS ORDERED: Naproxen 550 mg Tab PO STA (13:05)
--- NOTE | 2017-12-01 13:06 | ED PDOC ---
Arrival/HPI - General Chief Complaint: Finger,Hand,&Wrist Time Seen by Provider: 12/01/17 12:58 Historian: Patient - History of Present Illness Narrative History of Present Illness (Text): 12/01/17 13:07 62 yo M with PMH including TIA, CVA, bilateral carotid disease s/p stenting, urethral structures, and cochlear implants who presents with complaint left wrist discomfort since 1 week. Patients states a sensation of "popping" in his left wrist. Pt denies any fall, trauma, or injury to hand. Patient denies any fever, chills, nausea, vomiting, diarrhea, abdominal pain, chest pain, shortness of breath, cough, headache, dizziness, neck pain, back pain, or any other complaints. PMD: Dr. Sims Time/Duration: 1 week Symptom Course: Unchanged Quality: Aching Activities at Onset: Light Context: Home Past Medical History - Provider Review Nursing Documentation Reviewed: Yes - Past History Past History: No Previous - Infectious Disease Hx of Infectious Diseases: None - Tetanus Immunization Tetanus Immunization: Unknown - Past Medical History Past Medical History: No Previous - Cardiac Hx Pacemaker: No - Pulmonary Hx Respiratory Disorders: No - Neurological Hx Paralysis: No - HEENT Hx HEENT Disorder: Yes Hx Deafness: Yes (hearing aid) - Renal Hx Pyelonephritis: Yes - Endocrine/Metabolic Hx Endocrine Disorders: No - Hematological/Oncological Hx Blood Transfusions: No - Integumentary Hx Dermatological Disorder: No - Musculoskeletal/Rheumatological Hx Musculoskeletal Disorders: Yes - Gastrointestinal Hx Gastrointestinal Disorders: Yes Other/Comment: rectal bleed - Genitourinary/Gynecological Hx Genitourinary Disorders: (ERECTILE DYSFUNCTION,PRIAPISM) - Psychiatric Hx Emotional Abuse: No Hx Physical Abuse: No Hx Substance Use: No ("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") - Past Surgical History Past Surgical History: Non-Contributing - Surgical History Other/Comment: right colon 2011/tanesha cochlear implants - Anesthesia Hx Anesthesia Reactions: No Hx Malignant Hyperthermia: No - Suicidal Assessment Feels Threatened In Home Enviroment: No Family/Social History - Physician Review Nursing Documentation Reviewed: Yes Family/Social History: Unknown Family HX Smoking Status: Former Smoker Hx Alcohol Use: No ("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") Hx Substance Use: No ("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") Substance used: cocaine Hx Substance Use Treatment: No Allergies/Home Meds Allergies/Adverse Reactions: Allergies warfarin Allergy (Verified 12/01/17 12:51) RASH esomeprazole [From Nexium] Adverse Reaction (Verified 12/01/17 12:51) PAIN Home Medications: Home Meds Medication Instructions Recorded Confirmed RX: ARIPiprazole [Abilify] 15 mg PO HS 06/01/15 12/01/17 RX: Aspirin [[place] Aspirin] 81 mg PO DAILY 06/01/15 12/01/17 RX: Clopidogrel [Plavix] 75 mg PO DAILY 06/01/15 12/01/17 RX: Gabapentin [Neurontin] 300 mg PO BID 06/01/15 12/01/17 RX: Sertraline [Zoloft] 100 mg PO DAILY 06/01/15 12/01/17 RX: Trazodone HCl 300 mg PO HS 06/01/15 12/01/17 RX: traMADol [Ultram] 50 mg PO TID 06/01/15 12/01/17 RX: Pravastatin Sodium [Pravachol] 20 mg PO QPM 08/31/16 12/01/17 RX: Pantoprazole [Protonix EC Tab] 40 mg PO DAILY 04/18/17 12/01/17 Review of Systems - Physician Review All systems were reviewed & negative as marked: Yes - Review of Systems Constitutional: absent: Fevers Respiratory: absent: SOB, Cough Cardiovascular: absent: Chest Pain Gastrointestinal: absent: Abdominal Pain, Diarrhea, Nausea, Vomiting Musculoskeletal: Other (left wrist pain). absent: Back Pain, Neck Pain Neurological: absent: Headache, Dizziness Physical Exam Vital Signs Reviewed: Yes Vital Signs Temp Pulse Resp BP Pulse Ox 12/01/17 12:52 97.8 F 88 17 172/76 H 98 Temperature: Afebrile Blood Pressure: Hypertensive Pulse: Regular Respiratory Rate: Normal Appearance: Positive for: Well-Appearing, Non-Toxic, Comfortable Pain Distress: None Mental Status: Positive for: Alert and Oriented X 3 - Systems Exam Head: Present: Atraumatic, Normocephalic Pupils: Present: PERRL Extroacular Muscles: Present: EOMI Conjunctiva: Present: Normal Mouth: Present: Moist Mucous Membranes Neck: Present: Normal Range of Motion Respiratory/Chest: Present: Clear to Auscultation, Good Air Exchange. No: Respiratory Distress, Accessory Muscle Use Cardiovascular: Present: Regular Rate and Rhythm, Normal S1, S2. No: Murmurs Abdomen: No: Tenderness, Distention, Peritoneal Signs Back: Present: Normal Inspection Upper Extremity: Present: Normal ROM, NORMAL PULSES, Tenderness (lateral aspect of left wrist), Neurovascularly Intact, Capillary Refill < 2s. No: Cyanosis, Edema Lower Extremity: Present: Normal Inspection. No: Edema Neurological: Present: GCS=15, CN II-XII Intact, Speech Normal Skin: Present: Warm, Dry, Normal Color. No: Rashes Psychiatric: Present: Alert, Oriented x 3, Normal Insight, Normal Concentration Medical Decision Making ED Course and Treatment: 12/01/17 13:16 Impression: 62 year old male who presents to the Emergency Department with complaints of left wrist pain. Differential Diagnosis included but are not limited to: fracture vs. tendinitis Plan: -- Naproxen -- Left wrist xray -- Reassess and disposition Prior Visits: Notes and results from previous visits were reviewed. Progress Notes: 12/01/17 17:45 suspect dequarvain tenosynovitis vs other msk pain. no concern for infection normal rom. advise outpt fu. xc neg. - RAD Interpretation Radiology Orders: 12/01/17 13:05 WRIST, LEFT 3 VIEWS [RAD] Stat - Scribe Statement The provider has reviewed the documentation as recorded by the Camryn hampton with Connie All medical record entries made by the Scribe were at my direction and personally dictated by me. I have reviewed the chart and agree that the record accurately reflects my personal performance of the history, physical exam, medical decision making, and the department course for this patient. I have also personally directed, reviewed, and agree with the discharge instructions and disposition. Disposition/Present on Arrival - Present on Arrival Any Indicators Present on Arrival: No History of DVT/PE: No History of Uncontrolled Diabetes: No Urinary Catheter: No History of Decub. Ulcer: No History Surgical Site Infection Following: None - Disposition Have Diagnosis and Disposition been Completed?: Yes Diagnosis: Tenosynovitis, de Quervain, Wrist pain Disposition: HOME/ ROUTINE Disposition Time: 02:00 Condition: STABLE Discharge Instructions (ExitCare): De Quervain's Tenosynovitis, Tendinopathy (DC) Additional Instructions: follow up with specialist. return to er with worsening symptoms or concerns. Prescriptions: RX: Naproxen 500 mg PO BID PRN #14 tablet PRN Reason: Pain, Mild (1-3) Referrals: Niko Wilkinson DO [Staff Provider] - Follow up with primary Forms: [employer] (Danish)
[2017-12-01 14:27] VITALS: BP 128/88; PULSE 85; RESP 18; O2SAT 100
--- NOTE | 2017-12-01 14:34 | RAD ---
Date of service: 12/01/2017 PROCEDURE: Left Wrist Radiographs. HISTORY: wrist pain, no trauma COMPARISON: None. FINDINGS: BONES: Normal. No fracture. JOINTS: Normal. No dislocation. SOFT TISSUES: Normal. OTHER FINDINGS: None. IMPRESSION: Normal left wrist radiographs. Concordant results with the preliminary interpretation rendered by the emergency department physician procedure.
== END 2017-12-01 14:35 | disposition home or self-care (01) ==
LOC: ED 12:47
DX: M65.4 Radial styloid tenosynovitis [de Quervain] (principal); M25.532 Pain in left wrist; Z87.891 Personal history of nicotine dependence; Z86.73 Personal history of transient ischemic attack (TIA), and cerebral infarction without residual deficits

== ENCOUNTER 2018-05-12 07:05 | Emergency (ER) | payer MEDICARE ==
[2018-05-12 07:06] VITALS: BMI 36.8
--- NOTE | 2018-05-12 07:47 | ED PDOC ---
Arrival/HPI - General Chief Complaint: Back Pain Historian: Patient - History of Present Illness Narrative History of Present Illness (Text): 05/12/18 07:49 62 year old male, with a past medical history including TIA, CVA, bilateral carotid disease s/p stenting, urethral structures, and cochlear implants, who presents to the emergency department complaining of left sided lower back pain, 7/10 in severity, for 1 week. Patient reports seeing his PCP, who stated it was "muscular". Patient also reports speaking with his urologist, Dr. Albino Miranda, who referred patient to the emergency room. Patient endorses taking aspirin, tramadol, and muscle relaxers, with slight relief. Patient denies any fever, chills, headache, shortness of breath, nausea, vomiting, diarrhea, chest pain, difficulty urinating, or any other complaints. Time/Duration: 1 week Symptom Onset: Gradual Symptom Course: Unchanged Activities at Onset: Light Context: Home Past Medical History - Provider Review Nursing Documentation Reviewed: Yes - Past History Past History: No Previous - Infectious Disease Hx of Infectious Diseases: None - Tetanus Immunization Tetanus Immunization: Unknown - Past Medical History Past Medical History: No Previous - Cardiac Hx Pacemaker: No - Pulmonary Hx Respiratory Disorders: No - Neurological Hx Paralysis: No - HEENT Hx HEENT Disorder: Yes Hx Deafness: Yes (hearing aid) - Renal Hx Pyelonephritis: Yes - Endocrine/Metabolic Hx Endocrine Disorders: No - Hematological/Oncological Hx Blood Transfusions: No - Integumentary Hx Dermatological Disorder: No - Musculoskeletal/Rheumatological Hx Musculoskeletal Disorders: Yes - Gastrointestinal Hx Gastrointestinal Disorders: Yes Hx Gastroesophageal Reflux: Yes Other/Comment: rectal bleed - Genitourinary/Gynecological Hx Genitourinary Disorders: (ERECTILE DYSFUNCTION,PRIAPISM) - Psychiatric Hx Anxiety: Yes Hx Depression: Yes Hx Substance Use: No ("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") - Past Surgical History Past Surgical History: Non-Contributing - Surgical History Other/Comment: right colon 2011/tanesha cochlear implants - Anesthesia Hx Anesthesia Reactions: No Hx Malignant Hyperthermia: No - Suicidal Assessment Feels Threatened In Home Enviroment: No Family/Social History - Physician Review Nursing Documentation Reviewed: Yes Family/Social History: Unknown Family HX Smoking Status: Former Smoker Hx Alcohol Use: No ("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") Hx Substance Use: No ("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") Substance used: cocaine Hx Substance Use Treatment: No Allergies/Home Meds Allergies/Adverse Reactions: Allergies warfarin Allergy (Verified 05/12/18 07:22) RASH esomeprazole [From Nexium] Adverse Reaction (Verified 05/12/18 07:22) PAIN Home Medications: Home Meds Medication Instructions Recorded Confirmed ARIPiprazole [Abilify] 15 mg PO HS 06/01/15 05/12/18 Aspirin [Homer Aspirin] 81 mg PO DAILY 06/01/15 05/12/18 Clopidogrel [Plavix] 75 mg PO DAILY 06/01/15 05/12/18 Gabapentin [Neurontin] 300 mg PO BID 06/01/15 05/12/18 Sertraline [Zoloft] 100 mg PO DAILY 06/01/15 05/12/18 Trazodone HCl 300 mg PO HS 06/01/15 05/12/18 traMADol [Ultram] 50 mg PO TID 06/01/15 05/12/18 Pravastatin Sodium [Pravachol] 20 mg PO QPM 08/31/16 05/12/18 Pantoprazole [Protonix EC Tab] 40 mg PO DAILY 04/18/17 05/12/18 Review of Systems - Physician Review All systems were reviewed & negative as marked: Yes - Review of Systems Constitutional: absent: Fevers Respiratory: absent: SOB, Cough Cardiovascular: absent: Chest Pain Gastrointestinal: absent: Abdominal Pain, Nausea, Vomiting Musculoskeletal: Back Pain (left sided lower back pain) Skin: absent: Rash Neurological: absent: Headache, Dizziness Endocrine: absent: Diaphoresis Physical Exam Vital Signs Reviewed: Yes Vital Signs Temp Pulse Resp BP Pulse Ox 05/12/18 07:06 98.1 F 94 H 18 134/76 93 L Temperature: Afebrile Blood Pressure: Normal Pulse: Regular Respiratory Rate: Normal Appearance: Positive for: Well-Appearing, Non-Toxic, Comfortable Pain Distress: None Mental Status: Positive for: Alert and Oriented X 3 - Systems Exam Head: Present: Atraumatic, Normocephalic Pupils: Present: PERRL Extroacular Muscles: Present: EOMI Conjunctiva: Present: Normal Mouth: Present: Moist Mucous Membranes Neck: Present: Normal Range of Motion Respiratory/Chest: Present: Clear to Auscultation, Good Air Exchange. No: Respiratory Distress, Accessory Muscle Use Cardiovascular: Present: Regular Rate and Rhythm, Normal S1, S2. No: Murmurs Abdomen: Present: Distention (slight distension). No: Tenderness, Peritoneal Signs Back: Present: Normal Inspection, Other (point tenderness noted to the left thoraic region.). No: CVA Tenderness Upper Extremity: Present: Normal Inspection. No: Cyanosis, Edema Lower Extremity: Present: Normal Inspection. No: Edema Neurological: Present: GCS=15, Speech Normal Skin: Present: Warm, Dry, Normal Color. No: Rashes Psychiatric: Present: Alert, Oriented x 3, Normal Insight, Normal Concentration Medical Decision Making ED Course and Treatment: 05/12/18 07:44 Impression: 62 year old male presents to the emergency department complaining of left sided lower back pain, 7/10 in severity, for 1 week. Differential Diagnosis included but are not limited to: --Kidney Stone --Pyeloephritis --MSK pain Plan: -- Valium -- Toradol -- Ketalar -- Urine culture -- Urinalysis -- Reassess and disposition Prior Visits: Notes and results from previous visits were reviewed. Progress Notes: 05/12/18 10:12 CT a/p shows no evidence of hydronephrosis or kidney stones. Spoke to Dr. Miranda who states patient may go home if no acute pathology is seen on CT a/p. Patient reevaluated reporting little alleviation in pain, however mentions he is a recovering addict. Ketamine ordered. - Lab Interpretations Lab Results: Lab Results 05/12/18 08:15: Urine Color Yellow, Urine Appearance Clear, Urine pH 5.5, Ur Specific Dieterich 1.025, Urine Protein Negative, Urine Glucose (UA) Negative, Urine Ketones Negative, Urine Blood Negative, Urine Nitrate Negative, Urine Bilirubin Negative, Urine Urobilinogen 0.2, Ur Leukocyte Esterase Negative I have reviewed the lab results: Yes - RAD Interpretation Narrative RAD Interpretations (Text): 05/12/18 10:19 CT a/p reviewed by radiologist, shows: No hydronephrosis or obstructing calculus identified. The urinary bladder appears thick walled; recommend correlation with urinalysis. Director Process Engineering: Radiologist - Medication Orders Current Medication Orders: 05/12/18 10:07 Discontinued Medications Diazepam (Valium) 5 mg PO ONCE ONE; Protocol Stop: 05/12/18 07:52 Last Admin: 05/12/18 08:08 Dose: 5 mg Sodium Chloride (Sodium Chloride 0.9%) 1,000 mls @ 999 mls/hr IV .Q1H1M STA Stop: 05/12/18 09:39 Last Admin: 05/12/18 09:27 Dose: 999 mls/hr eMAR Start Stop Document 05/12/18 09:27 CD (Rec: 05/12/18 09:28 CD [id number]) Intravenous Solution Start Date 05/12/18 Start Time 09:28 End Date 05/12/18 End time 10:29 Total Infusion Time 61 Ketorolac Tromethamine (Toradol) 30 mg IVP STAT STA Stop: 05/12/18 07:50 Last Admin: 05/12/18 08:09 Dose: 30 mg MAR Pain Assessment Document 05/12/18 08:09 SRE (Rec: 05/12/18 08:09 SRE [id number]) Pain Reassessment Is this a pain reassessment? Yes Sleep Is patient sleeping during reassessment? No Presence of Pain Presence of Pain Yes Location Left, Right or Bilateral Left Pain Location Body Site Back Description Description Intermittent IVP Administration Document 05/12/18 08:09 SRE (Rec: 05/12/18 08:09 SRE [id number]) Charges for Administration # of IVP Administrations 1 - Scribe Statement The provider has reviewed the documentation as recorded by the Michaelibjae Sprague All medical record entries made by the Michaelibjae were at my direction and personally dictated by me. I have reviewed the chart and agree that the record accurately reflects my personal performance of the history, physical exam, medical decision making, and the department course for this patient. I have also personally directed, reviewed, and agree with the discharge instructions and disposition. Disposition/Present on Arrival - Present on Arrival Any Indicators Present on Arrival: No History of DVT/PE: No History of Uncontrolled Diabetes: No Urinary Catheter: No History of Decub. Ulcer: No History Surgical Site Infection Following: None - Disposition Have Diagnosis and Disposition been Completed?: Yes Diagnosis: Flank pain Disposition: HOME/ ROUTINE Disposition Time: 10:57 Patient Plan: Discharge Patient Problems: Current Active Problems Problem Status Onset Flank pain Acute Condition: STABLE Discharge Instructions (ExitCare): Nausea and Vomiting, Adult (DC) Print Language: INDONESIAN Additional Instructions: All medical record entries made by the Scribe were at my direction and personally dictated by me. I have reviewed the chart and agree that the record accurately reflects my personal performance of the history, physical exam, medical decision making, and the department course for this patient. I have also personally directed, reviewed, and agree with the discharge instructions and disposition. Follow up with your PCP in 3-5 days Prescriptions: Naproxen 500 mg PO Q6H #12 tab Referrals: Albino Miranda MD [Staff Provider] - Follow up with primary Forms: [employer] (Swiss)
[2018-05-12 08:33] LABS: PH,URINE 5.5 (4.7-8.0); URINE BILIRUBIN NEGATIVE (NEGATIVE); URINE BLOOD NEGATIVE (NEGATIVE); URINE GLUCOSE (UA) NEGATIVE (NEGATIVE); URINE LEUKOCYTE ESTERASE NEGATIVE Leu/uL (NEGATIVE); URINE PROTEIN NEGATIVE mg/dL (<30 mg/dL); URINE UROBILINOGEN 0.2 E.U./dL (<1 E.U./dL)
[2018-05-12 08:34] LABS: URINE APPEARANCE CLEAR (CLEAR); URINE COLOR YELLOW (YELLOW)
[2018-05-12] MEDS ORDERED: Sodium Chloride 0.9% 1,000 ML IV STA (08:39)
--- NOTE | 2018-05-12 09:48 | CT ---
PROCEDURE: CT Abdomen and Pelvis without Oral or IV contrast. HISTORY: renal colic...r/o kidney stones COMPARISON: None available TECHNIQUE: Contiguous axial images of the abdomen and pelvis. No oral or IV contrast administered. Coronal and Sagittal reformats generated and reviewed. Radiation dose: Total exam DLP = 944.93 mGy-cm. This CT exam was performed using one or more of the following dose reduction techniques: Automated exposure control, adjustment of the mA and/or kV according to patient size, and/or use of iterative reconstruction technique. FINDINGS: There is limited evaluation of the solid organs without the administration of IV contrast. LOWER THORAX: No visible consolidation, pleural effusion, or pneumothorax. LIVER: Unremarkable unenhanced appearance. GALLBLADDER AND BILE DUCTS: Unremarkable unenhanced appearance. PANCREAS: Unremarkable unenhanced appearance. SPLEEN: Unremarkable unenhanced appearance. ADRENALS: Unremarkable unenhanced appearance. KIDNEYS AND URETERS: No hydronephrosis or obstructing renal calculus. BLADDER: Urinary bladder appears thick walled; recommend correlation with urinalysis. REPRODUCTIVE: The prostate gland measures approximately 3.6 x 3.6 cm and contains calcifications. APPENDIX: Appendix is not identified. Surgical clips near the cecum presumably due to appendectomy. No secondary signs of acute appendicitis. BOWEL: The stomach is nondistended. Lack of oral contrast limits evaluation for bowel pathology. The bowel loops appear within normal limits of caliber without evidence of intestinal obstruction. PERITONEUM: No significant free fluid. No definite free air. LYMPH NODES: No bulky lymphadenopathy identified. VASCULATURE: Atherosclerotic calcifications of the aorta. No aortic aneurysm. BONES: Degenerative changes of the spine. OTHER FINDINGS: Small bilateral fat containing inguinal hernias. IMPRESSION: No hydronephrosis or obstructing calculus identified. The urinary bladder appears thick walled; recommend correlation with urinalysis.
[2018-05-12] MEDS ORDERED: Ketamine 10 mg/ml Inj (20 ml) IV ONE (10:11)
[2018-05-12 11:02] VITALS: O2SAT 95
[2018-05-12 11:44] VITALS: BP 146/89; PULSE 77; RESP 16; TEMP 97.9
== END 2018-05-12 11:43 | disposition home or self-care (01) ==
LOC: ED 07:05
DX: R10.9 Unspecified abdominal pain (principal)
CPT/HCPCS: 74176; 81003; 87086; 96361; 96374; 99283; J1885; J7030